=== PATIENT | male | born 1990 | race Caucasian/White ===

== ENCOUNTER 2016-04-13 23:03 | Emergency (ER) | payer OTHER ==
--- NOTE | 2016-04-14 01:58 | ED CLINICAL REPORT ---
Clinical Report - Physicians/Mid Levels [facility] [address] [place] [address] 04/13/2016 23:03 Patient: KENN JIMÉNEZ Arrived- By private vehicle. Historian- patient. HISTORY OF PRESENT ILLNESS Chief Complaint: NEAR-SYNCOPE. Is no longer unconscious. He has recovered. It was abrupt in onset and has been intermittent. Patient was reported to be last known well (today). This occurred today. Event was not witnessed. The patient had preceding symptoms of light-headedness. At time of event, he was sitting (using the restroom). The patient felt faint. The episode lasted seconds. No injuries noted. (patient also reporting a sore throat for the past 3 weeks, shortness of breath, and recent antibiotic use. States she also been having rectal bleeding with diarrhea for the past several days.). Similar symptoms previously: None. Recent medical care: The patient was seen recently in a clinic (treated with antibiotics for what patient describes as pneumonia or bronchitis approximately one month ago.). REVIEW OF SYSTEMS No black stools or skin rash. He has had bloody stools. All systems otherwise negative, except as recorded above. PAST HISTORY See nurses notes. SOCIAL HISTORY Never smoker. Occasional alcohol use; consumes beer. No drug use. No recent travel. Is a local resident. FAMILY HISTORY (Brother has asthma. no family history of acute sudden unexpected .). ADDITIONAL NOTES The nursing notes have been reviewed. PHYSICAL EXAM Vital Signs: 04/13/2016 23:07 BP: 126/83. HR: 102. RR: 18. O2 saturation: 96%. Temp: 98.5 F. Blood pressure normal. Oxygen saturation normal. Appearance: Alert. No acute distress. Head: No ecchymosis. Eyes: Pupils equal, round and reactive to light. No nystagmus. Extraocular movements normal. ENT: Normal ENT inspection. TM's normal. Mild generalized pharyngeal erythema. No pharyngeal vesicles or ulcerations. No right tonsillar abscess or left tonsillar abscess. Moist mucous membranes. Pharynx normal. No depression of the gag reflex. No trouble handling secretions or injury to the tongue. The mucous membranes are not dry. (no brawny edema). Neck: Normal inspection. Neck supple. No meningeal signs. CVS: Normal heart rate and rhythm. Heart sounds normal. Pulses normal. Respiratory: No respiratory distress. Breath sounds normal. Abdomen: Soft and nontender. Back: Normal inspection. : Genital inspection normal. Rectal: Rectal exam normal. No abnormal findings on digital exam. (guaiac-negative. no masses. No discharge. Prostate normal in contour and size.). Skin: Skin warm and dry. Normal skin color. No rash. Normal skin turgor. Extremities: Extremities exhibit normal ROM. No lower extremity edema. Neuro: Alert. Oriented X 3. Mood/affect normal. Speech normal. Cranial nerves normal (as tested). No cerebellar findings. No motor deficit. No sensory deficit. LABS, X-RAYS, AND EKG EKG: No acute process. No acute ischemia. Normal EKG. Normal sinus rhythm. Rate: 100. Normal P waves. Normal MONIE. Normal QRS complex. Normal axis. Normal ST and T waves, QT and QTc. Prior EKG unavailable. The study has been interpreted contemporaneously by me. The study has been independently viewed by me. The EKG appears to be a good tracing. Chest X-ray: No acute disease. Normal lung markings present. Normal heart size. Mediastinum normal. Great vessels normal. No infiltrate. Views: PA and lateral. Technique: good. The X-rays were independently viewed by me and interpreted contemporaneously by me. Laboratory Tests: CBC w Diff: (CARLOS: 04/13/2016 23:30) ( MsgRcvd 04/14/2016 00:14) Final results Test Result Flag Units (Reference) WHITE BLOOD COUNT 7.4 K/uL (4.5-11.5) RED BLOOD COUNT 5.52 M/uL (4.50-5.90) HEMOGLOBIN 15.5 gm/dL (13.5-17.5) HEMATOCRIT 46.1 % (41.0-53.0) MEAN CELL VOLUME 84 fL (80-100) MEAN CORPUSCULAR HGB 28 pg (26-34) MEAN CORPUSCULAR HGB CONC 34 g/dL (31-37) RED CELL DISTRIBUTION WIDTH 12.9 % (11.6-14.8) PLATELET COUNT 276 K/uL (150-400) NEUTROPHIL % 52.9 % (50-75) LYMPH % 35.7 % (25-40) MONO % 10.6 % (3-14) EOSINOPHIL % 0.5 % (0-4) BASOPHIL % 0.3 % (0-2) PT with INR: (CARLOS: 04/13/2016 23:30) ( MsgRcvd 04/14/2016 00:24) Final results Test Result Flag Units (Reference) INR 0.9 (0.8-1.2) Low Intensity Therapy: INR 1.5-2.0 PT range 18.5-23.1Mod.Intensity Therapy: INR 2.0-3.0 PT range 23.1-31.5High Intensity Therapy: INR 2.5-3.5 PT range 27.4-35.5High Intensity Therapy 2: INR 3.0-4.0 PT range 31.5-39.3 APTT 30 SECONDS (24-34) CMP: (CARLOS: 04/13/2016 23:30) ( MsgRcvd 04/14/2016 00:33) Final results Test Result Flag Units (Reference) GLUCOSE 130 H mg/dL (70-110) BUN 10 mg/dL (7-18) CREATININE 0.9 mg/dL (0.6-1.3) Estimated GFR >60 mL/min Estimated GFR- >60 mL/min Note: Persistent reduction over 3 months in eGFR<60 mL/min/1.73 m2 defines CKD. Patients with eGFR values>=60 mL/min/1.73 m2 may also have CKD if evidence ofpersistent proteinuria. Additional information may be foundat www.kidney.org. SODIUM 140 mmol/L (136-145) POTASSIUM 3.5 mmol/L (3.5-5.1) CHLORIDE 101 mmol/L (98-107) CARBON DIOXIDE 27 mmol/L (21-32) CALCIUM 8.3 L mg/dL (8.5-10.1) TOTAL PROTEIN 7.7 g/dL (6.4-8.2) ALBUMIN 3.7 g/dL (3.3-5.0) BILIRUBIN, TOTAL 0.4 mg/dL (0.0-1.0) ALKALINE PHOSPHATASE 111 U/L (46-116) AST (SGOT) 56 H U/L (15-37) ALT (SGPT) 120 H U/L (12-78) Culture, Strep Screen: (CARLOS: 04/14/2016 00:45) ( MsgRcvd 04/17/2016 06:28) Final results Test Result Flag Units (Reference) RAPID STREP SCREEN - THROAT CALLED TO: NA -- DATE: 04/14/16 NEGATIVE SCREEN: RAPID STREP SCREEN NEGATIVE; CONFIRMATION TO FOLLOW . DATE: 04/17/16 NO BETA STREP ISOLATED: NO BETA STREP ISOLATED Type & Screen: (CARLOS: 04/13/2016 23:30) ( MsgRcvd 04/14/2016 01:16) Final results Test Result Flag Units (Reference) PATIENT BLOOD TYPE O Negative ANTIBODY SCREEN NEGATIVE . PROGRESS AND PROCEDURES Course of Care: the patient is a 26-year-old male withno pertinent past medical history presenting for evaluation of syncope. Patient also reporting many other medical concerns. We will evaluate these as well. Patient with reported bloody bowel movements. Patient is Hemoccult negative on examination. The patient will be evaluated with the [facility] the role. The patient does have reported shortness of breath however on asking the patient why he is having the shortness of breath, patient states that the swelling in the throat makes it difficult for him to breathe. Do not feel that this is the typical shortness of breath associated with cardiopulmonary disease. The patient will be evaluated with a chest x-ray and EKG as well as laboratory studies. The chest x-ray we'll evaluate for any signs of consolidation or pneumonia. We will also order a rapid strep for evaluation of the patient's sore throat. No concerning signs of Derrell angina, peritonsillar abscess, or retropharyngeal abscess noted on examination. the patient is nontoxic and in no acute distress. Patient is agreeable to the treatment and plan. Workup does not show any acute abnormalities. Laboratory studies are unremarkable except for slight elevation in liver enzymes. I discussion with patient in regards to the elevated liver enzymes. Patient states that he has been diagnosed with "fatty liver disease. "Patient reports that his liver enzymes are always a little elevated. The rest of the patient's workup including EKG and chest x-ray are unremarkable. Based on the [employer] syncope rules, do not feel patient needs to be admitted to the hospital require further emergency department evaluation. Patient is a stable outpatient candidate. I discussion with patient in regards to her workup, diagnosis, home care, follow-up, and return precautions. All questions answered. The patient expressed understanding of these instructions and was agreeable to them. CLINICAL IMPRESSION Near syncope .12 lead EKG performed. Minor GI bleed with hematochezia. 04/13/2016 23:07 BP: 126/83. HR: 102. RR: 18. O2 saturation: 96%. Temp: 98.5 F. Blood pressure normal. Oxygen saturation normal. Acute viral bronchitis. Acute bronchospasm Acute viral pharyngitis elevated liver enzymes, acute mild. INSTRUCTIONS Warnings: GENERAL WARNINGS: Return or contact your physician immediately if your condition worsens or changes unexpectedly, if not improving as expected, or if other problems arise. SPECIFICALLY, return if you develop chest pain, fluttering sensation in your chest, lightheadedness, fainting, numbness, weakness or extreme fatigue. Your Current Medications: CONTINUE TAKING THE FOLLOWING MEDICATIONS: None*. Omeprazole Oral. Prescription Medications: Albuterol HFA oral inhaler: inhale 1-2 puffs via spacer every 4 hours as needed for wheezing, difficulty breathing or shortness of breath. Dispense one (1) unit. No refill. OTC Medications: Motrin (available over the counter): take according to label instructions. Follow-up: Return to the emergency department as needed. Follow up with your doctor in three days. Reason for referral: recheck today's concerns. Summary of care provided to patient via paper. Screening today revealed the patient's blood pressure to be in the normal range. The patient should follow up with a primary care provider for blood pressure management. Understanding of the discharge instructions verbalized by patient. Follow-up with: Migel Bernard MD, Gastroenterology, , [id number], , [place], [phone] Follow up in one week. Reason for referral: recheck today's concerns and evaluation elevated liver test. Summary of care provided to patient via paper. (Electronically signed by Mekhi Aldrich Dr. 04/17/2016 16:40)
--- NOTE | 2016-04-14 01:59 | ED ORDER SUMMARY ---
..... Patient: KENN JIMÉNEZ OrderSheet [facility] VisitID: [id number] [place] [address] 26y, M Registration Date/Time: 04/13/2016 ORDER SHEET Weight: 124.2 kg (stated) Allergies: No Known Drug Allergy GENERAL ORDERS: Chest 2V Urgent (23:28 04/13/2016 Jessica Doty) (Ack 23:31 [facility] ER Part Time) (0:07 Fiordalizager) CBC w Diff Urgent (23:30 04/13/2016 Jessica Doty) (Ack 23:31 [facility] ER Part Time) CMP Urgent (23:30 04/13/2016 Jessica Doty) (Ack 23:31 [facility] Part Time) PT with INR Urgent (23:30 04/13/2016 Jessica Doty) (Ack 23:31 [facility] Part Time) PTT Urgent (23:30 04/13/2016 Jessica Doty) (Ack 23:31 [facility] Part Time) Type & Screen Urgent (23:30 04/13/2016 Jessica Doty) (Ack 23:31 [facility] Part Time) Stool for C. Difficile Urgent (23:30 04/13/2016 Jessica Doty) (Ack 23:31 [facility] ER Part Time) Stool WBC Urgent (23:30 04/13/2016 Jessica Doty) (Ack 23:31 [facility] ER Part Time) Pulse oximeter (23:30 04/13/2016 Jessica Doty) (Ack 23:31 [facility] ER Part Time) EKG - ER Stat (23:30 04/13/2016 Jessica Doty) (Ack 23:31 [facility] Part Time) (0:23 Matias) Culture, Strep Screen Urgent (00:49 04/14/2016 Jessica Doty) (Ack 0:56 [facility] ER Part Time) MEDICATION ORDERS: DuoNeb Neb Tx 1 unit dose (NOW) (23:39 04/13/2016 Jessica Doty) (Ack 23:39 [facility] ER Part Time) (0:55 [facility] ER Part Time) IV FLUIDS: IV NS : initial bolus 1000 mL (1000 mL/hr), then none - for X1 (NOW) (23:29 04/13/2016 Jessica Doty) (23:53 Jf Young) ORDER SHEET NOTES: [Electronically signed by Narciso Barron R.N. (05:41 04/14/2016)] [Electronically signed by Mekhi Aldrich Dr. (16:40 04/17/2016)] [Electronically locked/signed by Narciso Barron R.N. (05:41 04/14/2016)]
--- NOTE | 2016-04-14 01:59 | ED NURSING NOTES ---
Clinical Report - Nurses [facility] [address] [place] [address] 04/13/2016 23:03 Patient: KENN JIMÉNEZ TRIAGE Triage time 23:Apr 13 2016. Acuity: LEVEL 3. Chief Complaint: SHORTNESS OF BREATH and (sob cp). --23:13 Narciso Barron R.N. 23:07 04/13/16. BP: 126/83. HR: 102. RR: 18. O2 saturation: 96%. Temp: 98.5 F. --23:13 Narciso Barron R.N. Weight: 124.2 kg stated. Height/Length: 74 inches Per Patient. BMI: 35.2. --23:12 Narciso Barron R.N. Medications None. --23:11 Narciso Barron R.N. Omeprazole Oral. --23:11 Narciso Barron R.N. Allergies No Known Drug Allergy. --23:11 Narciso Barron R.N. History Arrived by private vehicle. ( Pt diagnosed with pneumonia end of february given ABX and steroids. Pt is experiencing pain with respiration. No change in symptoms since then. Pt reports feeling Dizzy with BM. Pt reports bloody stool.). The patient has had a cough. SOCIAL HX: Never smoker. Alcohol use; consumes beer occasionally. No drug use. --23:13 Narciso Barron R.N. PROBLEMS: Gastritis. Dehydration. Abnormal Liver Function Test. Peptic Ulcer Disease. Slipped disc. Abdominal Pain. Gastric ulcer. --23:10 Narciso Barron R.N. Interventions ID band on patient. To treatment room. --23:13 Narciso Barron R.N. PHYSICAL ASSESSMENT GENERAL / NEURO / PSYCH: Alert. Oriented X 4. Appears in no acute distress. RESPIRATORY: Decreased breath sounds in the right lung base posteriorly. CVS: Normal sinus rhythm noted. GI / : Bowel sounds within normal limits. --23:21 Narciso Barron R.N. NURSING PROGRESS NOTES Monitoring of patient in place. Patient gowned. Reassurance given. Two patient identifiers checked. Side rails up x 1. Bed placed in lowest position. Patient placed in chair. --23:20 Narciso Barron R.N. 23:52 04/13/2016 Site #1 started via IV in the left antecubital space with an 18g angiocath, with aseptic technique and good blood return; one attempt. Blood drawn: rainbow set. Labeled in the presence of the patient and sent to the lab. Saline lock flushed. --23:53 Narciso Barron R.N. 23:52 04/13/2016 Started bag #1 1000 mL IV Fluids IV NS (Saline); bolus of 1000 mL wide open via site #1. Allergies verified and confirmed 5 rights. IV patency established. IV site checked: no pain, redness, or swelling. IV flushed thoroughly pre- and post-medication administration. Completed per protocol. --23:53 Narciso Barron R.N. EKG time: (0016 AM). EKG was ordered, performed by a tech and shown to the ED physician. --00:23 Yesenia Conley 00:30 04/14/2016 Duoneb (Ipratropium-Albuterol) Neb TX 1 unit dose given. Given by the respiratory therapist. Allergies verified and confirmed 5 rights. --00:55 Barrington Rosenbaum, ER [facility] Rn. DISPOSITION / DISCHARGE 02:12 04/14/2016 Site #1 removed upon discharge. Pressure dressing applied. --02:12 Narciso Barron R.N. Departure time: 0210. Discharge instructions provided and reviewed with the patient. Reviewed medication(s) side effects information. Prescription(s) given to the patient. Patient verbalized understanding. Written instructions provided in Greek. The patient was discharged by the physician. He was discharged home. He left the Emergency Department ambulatory and via private vehicle. Patient driving. Bed requested. ( Pt ambulated on discharge steady on his feet, pt verbalized understanding of discharge instructions and follow up care.). --02:14 Narciso Barron R.N. 02:14 04/14/16. BP: 136/67. HR: 98. RR: 18. O2 saturation: 98%. Temp: 98.2 F. Pain level now 10/27. --02:15 Narciso Barron R.N. Locked/Released at 04/14/2016 5:41 by Narciso Barron R.N.
--- NOTE | 2016-04-14 01:59 | ED NURSING NOTES ---
Clinical Report - Nurses [facility] [address] [place] [address] 04/13/2016 23:03 Patient: KENN JIMÉNEZ TRIAGE Triage time 23:Apr 13 2016. Acuity: LEVEL 3. Chief Complaint: SHORTNESS OF BREATH and (sob cp). --23:13 Narciso Barron R.N. 23:07 04/13/16. BP: 126/83. HR: 102. RR: 18. O2 saturation: 96%. Temp: 98.5 F. --23:13 Narciso Barron R.N. Weight: 124.2 kg stated. Height/Length: 74 inches Per Patient. BMI: 35.2. --23:12 Narciso Barron R.N. Medications None. --23:11 Narciso Barron R.N. Omeprazole Oral. --23:11 Narciso Barron R.N. Allergies No Known Drug Allergy. --23:11 Narciso Barron R.N. History Arrived by private vehicle. ( Pt diagnosed with pneumonia end of february given ABX and steroids. Pt is experiencing pain with respiration. No change in symptoms since then. Pt reports feeling Dizzy with BM. Pt reports bloody stool.). The patient has had a cough. SOCIAL HX: Never smoker. Alcohol use; consumes beer occasionally. No drug use. --23:13 Narciso Barron R.N. PROBLEMS: Gastritis. Dehydration. Abnormal Liver Function Test. Peptic Ulcer Disease. Slipped disc. Abdominal Pain. Gastric ulcer. --23:10 Narciso Barron R.N. Interventions ID band on patient. To treatment room. --23:13 Narciso Barron R.N. PHYSICAL ASSESSMENT GENERAL / NEURO / PSYCH: Alert. Oriented X 4. Appears in no acute distress. RESPIRATORY: Decreased breath sounds in the right lung base posteriorly. CVS: Normal sinus rhythm noted. GI / : Bowel sounds within normal limits. --23:21 Narciso Barron R.N. NURSING PROGRESS NOTES Monitoring of patient in place. Patient gowned. Reassurance given. Two patient identifiers checked. Side rails up x 1. Bed placed in lowest position. Patient placed in chair. --23:20 Narciso Barron R.N. 23:52 04/13/2016 Site #1 started via IV in the left antecubital space with an 18g angiocath, with aseptic technique and good blood return; one attempt. Blood drawn: rainbow set. Labeled in the presence of the patient and sent to the lab. Saline lock flushed. --23:53 Narciso Barron R.N. 23:52 04/13/2016 Started bag #1 1000 mL IV Fluids IV NS (Saline); bolus of 1000 mL wide open via site #1. Allergies verified and confirmed 5 rights. IV patency established. IV site checked: no pain, redness, or swelling. IV flushed thoroughly pre- and post-medication administration. Completed per protocol. --23:53 Narciso Barron R.N. EKG time: (0016 AM). EKG was ordered, performed by a tech and shown to the ED physician. --00:23 Yesenia Conley 00:30 04/14/2016 Duoneb (Ipratropium-Albuterol) Neb TX 1 unit dose given. Given by the respiratory therapist. Allergies verified and confirmed 5 rights. --00:55 Barrington Rosenbaum, ER Pet Sitter. DISPOSITION / DISCHARGE 02:12 04/14/2016 Site #1 removed upon discharge. Pressure dressing applied. --02:12 Narciso Barron R.N. Departure time: 0210. Discharge instructions provided and reviewed with the patient. Reviewed medication(s) side effects information. Prescription(s) given to the patient. Patient verbalized understanding. Written instructions provided in Occitan. The patient was discharged by the physician. He was discharged home. He left the Emergency Department ambulatory and via private vehicle. Patient driving. Bed requested. ( Pt ambulated on discharge steady on his feet, pt verbalized understanding of discharge instructions and follow up care.). --02:14 Narciso Barron R.N. 02:14 04/14/16. BP: 136/67. HR: 98. RR: 18. O2 saturation: 98%. Temp: 98.2 F. Pain level now 10/27. --02:15 Narciso Barron R.N. Locked/Released at 04/14/2016 5:41 by Narciso Barron R.N.
--- NOTE | 2016-04-14 01:59 | ED ORDER SUMMARY ---
..... Patient: KENN JIMÉNEZ OrderSheet [facility] VisitID: [id number] [place] [address] 26y, M Registration Date/Time: 04/13/2016 ORDER SHEET Weight: 124.2 kg (stated) Allergies: No Known Drug Allergy GENERAL ORDERS: Chest 2V Urgent (23:28 04/13/2016 Jessica Doty) (Ack 23:31 [facility] Slitter And Rewinder) (0:07 Fiordalizager) CBC w Diff Urgent (23:30 04/13/2016 Jessica Doty) (Ack 23:31 [facility] Rewinder) CMP Urgent (23:30 04/13/2016 Jessica Doty) (Ack 23:31 [facility] Rewinder) PT with INR Urgent (23:30 04/13/2016 Jessica Doty) (Ack 23:31 [facility] Rewinder) PTT Urgent (23:30 04/13/2016 Jessica Doty) (Ack 23:31 [employer] And Rewinder) Type & Screen Urgent (23:30 04/13/2016 Jessica Doty) (Ack 23:31 [facility] Slitter [facility] Rewinder) Stool for C. Difficile Urgent (23:30 04/13/2016 Jessica Doty) (Ack 23:31 [facility] Rewinder) Stool WBC Urgent (23:30 04/13/2016 Jessica Doty) (Ack 23:31 [facility] Rewinder) Pulse oximeter (23:30 04/13/2016 Jessica Doty) (Ack 23:31 [facility] Rewinder) EKG - ER Stat (23:30 04/13/2016 Jessica Doty) (Ack 23:31 [facility] [employer] Rewinder) (0:23 Matias) Culture, Strep Screen Urgent (00:49 04/14/2016 Jessica Doty) (Ack 0:56 [facility] [employer] Rewinder) MEDICATION ORDERS: DuoNeb Neb Tx 1 unit dose (NOW) (23:39 04/13/2016 Jessica Doty) (Ack 23:39 [facility]inder) (0:55 [facility] Rewinder) IV FLUIDS: IV NS : initial bolus 1000 mL (1000 mL/hr), then none - for X1 (NOW) (23:29 04/13/2016 Jessica Doty) (23:53 Jf Young) ORDER SHEET NOTES: [Electronically signed by Narciso Barron R.N. (05:41 04/14/2016)] [Electronically signed by Mekhi Aldrich Dr. (16:40 04/17/2016)] [Electronically locked/signed by Narciso Barron R.N. (05:41 04/14/2016)]
--- NOTE | 2016-04-14 06:55 | DIAGNOSTIC IMAGING REPORT ---
PROCEDURE: XR CHEST 2 VIEW INDICATION: COUGH, PLEURISY, initial encounter TECHNIQUE: PA and lateral view. COMPARISON: None. FINDINGS: Lungs are clear. Cardiovascular structures are normal. Bony thorax is unremarkable. IMPRESSION: 1. Negative chest.
--- NOTE | 2016-04-17 16:40 | ED MAR SUMMARY ---
..... Medication Administration Record Merged With [facility] [address] [place] [address] Patient: KENN JIMÉNEZ Visit ID: [id number] 26y, M Weight: 124.2 kg Height/Length: 74 in BMI: 35.2 ALLERGIES: No Known Drug Allergy Start 23:52 04/13/2016 Narciso Barron R.N. Medication Administered: IV NS (SALINE), Dose: IV Fluids, Bolus: 1000 mL wide open, Dispensed: 1000 mL bag, Site: #1 left AC. Medication Ordered: IV NS : initial bolus 1000 mL (1000 mL/hr), then none - for X1 (NOW). Given 00:30 04/14/2016 Barrington Rosenbaum, LETI Sign Language Teacher Medication Administered: DUONEB [NEB TX] (IPRATROPIUM-ALBUTEROL), Dose: 1 unit dose Neb TX. Medication Ordered: DuoNeb Neb Tx 1 unit dose (NOW).
--- NOTE | 2016-04-17 16:40 | ED DISCHARGE INSTRUCTIONS ---
Patient: KENN JIMÉNEZ General Instructions [facility] VisitID: [id number] [address] [place] [address] 26y, M Registration Date/Time: 04/13/2016 Near syncope .12 lead EKG performed. Minor GI bleed with hematochezia. 04/13/2016 23:07 BP: 126/83. HR: 102. RR: 18. O2 saturation: 96%. Temp: 98.5 F. Blood pressure normal. Oxygen saturation normal. Acute viral bronchitis. Acute bronchospasm Acute viral pharyngitis elevated liver enzymes, acute mild. INSTRUCTIONS Warnings: GENERAL WARNINGS: Return or contact your physician immediately if your condition worsens or changes unexpectedly, if not improving as expected, or if other problems arise. SPECIFICALLY, return if you develop chest pain, fluttering sensation in your chest, lightheadedness, fainting, numbness, weakness or extreme fatigue. Your Current Medications: CONTINUE TAKING THE FOLLOWING MEDICATIONS: None*. Omeprazole Oral. Prescription Medications: Albuterol HFA oral inhaler: inhale 1-2 puffs via spacer every 4 hours as needed for wheezing, difficulty breathing or shortness of breath. Dispense one (1) unit. No refill. OTC Medications: Motrin (available over the counter): take according to label instructions. Follow-up: Return to the emergency department as needed. Follow up with your doctor in three days. Reason for referral: recheck today's concerns. Summary of care provided to patient via paper. Screening today revealed the patient's blood pressure to be in the normal range. The patient should follow up with a primary care provider for blood pressure management. Understanding of the discharge instructions verbalized by patient. Follow-up with: Migel Bernard MD, Gastroenterology, , [address] , [place], [id number] Follow up in one week. Reason for referral: recheck today's concerns and evaluation elevated liver test. Summary of care provided to patient via paper. ADDITIONAL INFORMATION Near-Fainting:Vagal Reaction Fainting (syncope) is a temporary loss of consciousness ("passing out"). It occurs when blood flow to the brain is reduced. Your doctor believes that your episode was due to a common vagal reaction. A vagal reaction is a reflex response that causes the pulse to slow down. If the pulse is low enough, the blood pressure falls and causes fainting or near-fainting. Lying down usually stops the reaction within 60 seconds. This reflex response can occur during sudden fear, severe pain, emotional stress, overexertion or suddenly standing up after sitting or lying for a long time. Home Care: 1) Rest today and resume your normal activities as soon as you are feeling back to normal. 2) If you become light-headed or dizzy, lie down immediately or sit with your head lowered between your knees. Follow Up with your doctor as instructed. Get Prompt Medical Attention if any of the following occur: -- Another fainting spell occurs, which is not explained by the common causes listed above -- Chest, arm, neck, jaw, back or abdominal pain -- Shortness of breath -- Weakness, tingling or numbness in one side of the face, one arm or leg -- Slurred speech, confusion, difficulty walking or seeing -- Seizure -- Blood in vomit, stools (black or red color) -- (In women) unexpected vaginal bleeding Rectal Bleeding (Stable) Your exam today shows signs of blood in the stool. This is called rectal bleeding, because the blood passes through the rectum. However, the blood may not be coming from the rectum. Blood in the stool may be red or black in color. Red blood in the stool usually comes from the lower gastro-intestinal (GI) tract. This may be due to diverticulosis, polyps, colon inflammation or infection, anal fissure or hemorrhoids. In persons over 50 tumors and cancer of the intestinal tract may first show up as red blood in the stool. Upper GI bleeding causes the stool to turn black. This may occur with bleeding from the esophagus, stomach, duodenum or small intestine. Very small amounts of GI bleeding may not be visible and can only be discovered on a chemical test of the stool. You have not lost a large amount of blood and your condition appears stable at this time. It is very important to have a follow-up exam to determine the exact cause of your bleeding. Home Care: 1) You may resume normal activity as long as you feel well. 2) Avoid aspirin and anti-inflammatory drugs such as ibuprofen (Advil, Motrin) and naproxen (Aleve and Naprosyn). You may use acetaminophen (Tylenol) for pain. [ NOTE : If you have chronic liver disease, talk with your doctor before using acetaminophen.] 3) Avoid alcohol. Follow Up with your doctor or as advised by our medical staff. It is very important that you have further tests done to find the cause of your bleeding. Get Prompt Medical Attention if any of the following occur: -- Large amount of rectal bleeding (more than 1 cup of blood in 24 hours) -- Increasing abdominal pain -- Weakness, dizziness or fainting -- Vomiting blood (red or black color) Bronchitis, Viral (Adult: No Abx) You have a viral bronchitis. This illness is contagious during the first few days and is spread through the air by coughing and sneezing, or by direct contact (touching the sick person and then touching your own eyes, nose, or mouth). Most viral illnesses resolve within 10-14 days with rest and simple home remedies, although they may sometimes last for several weeks. Antibiotics will not kill a virus and are generally not prescribed for this condition. Home Care: If symptoms are severe, rest at home for the first 2-3 days. When resuming activity, don't let yourself become overly tired. Do not smoke and avoid the smoke of others. You may use acetaminophen (Tylenol) or ibuprofen (Motrin, Advil) to control fever or pain, unless another pain medicine was prescribed. [NOTE: If you have chronic liver or kidney disease or ever had a stomach ulcer or GI bleeding, talk with your doctor before using these medicines.] (Aspirin should never be used in anyone under 18 years of age who is ill with a fever. It may cause severe liver damage.) Your appetite may be poor so a light diet is fine. Avoid dehydration by drinking 6-8 glasses of fluids per day (water, sport drinks such as Gatorade, juices, tea, soup, etc.). Extra fluids will help loosen secretions in the nose and lung. Thdk-otr-uhwhluz cold medicines will not shorten the length of the illness, but may be helpful for cough (Robitussin DM), sore throat (Chloraseptic lozenges or spray), nasal and sinus congestion (Actifed or Sudafed). [NOTE: Do not use decongestants if you have high blood pressure.] Follow Up with your doctor or as directed by our staff if you are not improving over the next week. NOTE: If you are age 65 or older, or if you have chronic asthma or COPD, we recommend a PNEUMOCOCCAL VACCINATION every five years and a yearly INFLUENZAVACCINATION (FLU-SHOT) every . Ask your doctor about this. If you had an X-ray, a radiologist will review it. You will be notified of any new findings that may affect your care.] Get Prompt Medical Attention if any of the following occur: Fever over 100.4F (38.0C) for more than three days Trouble breathing, wheezing or pain with breathing Coughing up blood or increased amounts of colored sputum Weakness, drowsiness, headache, facial pain, ear pain or a stiff neck Bronchospasm (Adult) Bronchospasm occurs when the airways (bronchial tubes) go into spasm and contract. This makes it hard to breathe and causes wheezing (a high-pitched whistling sound). Bronchospasm can also cause frequent coughing without the wheezing sound. Bronchospasm is due to irritation, inflammation or allergic reaction of the airways. People with asthma get bronchospasm. However, not everyone with bronchospasm has asthma. Being exposed to harmful fumes, a recent case of bronchitis, or a flare-up of chronic emphysema (COPD) may cause the airways to spasm. An episode of bronchospasm may last 7-14 days. Medicine may be prescribed to relax the airways and prevent wheezing. Antibiotics will be prescribed only if your doctor thinks there is a bacterial infection. Antibiotics do not help a viral infection. Home Care: Drink lots of water or other fluids (at least 10 glasses a day) during an attack. This will loosen lung secretions and make it easier to breathe. If you have heart or kidney disease, check with your doctor before you drink extra amounts of fluids. Take prescribed medicine exactly at the times advised. If you have a hand-held inhaler or aerosol breathing medicine, do not use it more than once every four hours, unless told to do so. If prescribed an antibiotic or prednisone, take all of the medicine even if you are feeling better after a few days. Do not smoke. Avoid being exposed to the smoke of others. If you were given an inhaler, use it exactly as directed. If you need to use it more often than prescribed, your condition may be getting worse. Contact your doctor or this facility. Follow Up With Your Doctor, Or As Directed. [ NOTE: If you are age 65 or older, or if you have chronic asthma or COPD, we recommend a PNEUMOCOCCAL VACCINATION every five years and a yearly INFLUENZA VACCINATION (FLU-SHOT) every . Ask your doctor about this.] Get Prompt Medical Attention If Any Of The Following Occur: Increased wheezing or shortness of breath Need to use your inhalers more often than usual without relief Fever of 100.4F (38C) or higher, or as directed by your healthcare provider Coughing up lots of dark-colored or bloody sputum (mucus) Chest pain with each breath You do not start to improve within 24 hours Viral Pharyngitis (Sore Throat) Your throat pain is due to an infection called "Viral Pharyngitis", commonly known as "Sore Throat". This is a contagious illness. It is spread through the air by coughing, kissing or by touching others after touching your mouth or nose. Symptoms include throat pain worse with swallowing, aching all over, headache and fever. Unlike strep throat, which is a bacterial infection, this illness does not require treatment with an antibiotic. Home Care: If your symptoms are severe, rest at home for the first 2-3 days. Children: Use acetaminophen (Tylenol) for fever, fussiness or discomfort. In infants over six months of age, you may use ibuprofen (Children's Motrin) instead of Tylenol. [NOTE: If your child has chronic liver or kidney disease or ever had a stomach ulcer or GI bleeding, talk with your bailey doctor before using these medicines.] (Aspirin should never be used in anyone under 18 years of age who is ill with a fever. It may cause severe liver damage.) Adults: You may use acetaminophen (Tylenol) or ibuprofen (Motrin, Advil) to control pain or fever, unless another medicine was prescribed. [NOTE: If you have chronic liver or kidney disease or ever had a stomach ulcer or GI bleeding, talk with your doctor before using these medicines.] Throat lozenges or sprays (Chloraseptic and others) will reduce pain. Gargling with warm salt water will also reduce throat pain. Dissolve 1/2 teaspoon of salt in 1 glass of warm water. This is especially useful just before meals. Follow Up with your doctor or as directed by our staff if you are not improving over the next week. Get Prompt Medical Attention if any of the following occur: Fever over 100.5F (38.0C) oral, or over 101.5F (38.6C) rectal for more than three days New or worsening ear pain, sinus pain or headache Painful lumps in the back of your neck Unable to swallow liquids or open your mouth wide due to throat pain Trouble breathing or noisy breathing Muffled voice New rash Albuterol Sulfate Pressurized inhalation, suspension What is this medicine? ALBUTEROL (al BYOO ter ole) is a bronchodilator. It helps open up the airways in your lungs to make it easier to breathe. This medicine is used to treat and to prevent bronchospasm. How should I use this medicine? This medicine is for inhalation through the mouth. Follow the directions on your prescription label. Take your medicine at regular intervals. Do not use more often than directed. Make sure that you are using your inhaler correctly. Ask you doctor or health care provider if you have any questions. Talk to your pattern finisher regarding the use of this medicine in children. Special care may be needed. What side effects may I notice from receiving this medicine? Side effects that you should report to your doctor or health coronary care unit nurse as soon as possible: allergic reactions like skin rash, itching or hives, swelling of the face, lips, or tongue breathing problems chest pain feeling faint or lightheaded, falls high blood pressure irregular heartbeat fever muscle cramps or weakness pain, tingling, numbness in the hands or feet vomiting Side effects that usually do not require medical attention (report to your doctor or health coronary care unit nurse if they continue or are bothersome): cough difficulty sleeping headache nervousness or trembling stomach upset stuffy or runny nose throat irritation unusual taste What may interact with this medicine? anti-infectives like chloroquine and pentamidine caffeine cisapride diuretics medicines for colds medicines for depression or for emotional or psychotic conditions medicines for weight loss including some herbal products methadone some antibiotics like clarithromycin, erythromycin, levofloxacin, and linezolid some heart medicines steroid hormones like dexamethasone, cortisone, hydrocortisone theophylline thyroid hormones What if I miss a dose? If you miss a dose, use it as soon as you can. If it is almost time for your next dose, use only that dose. Do not use double or extra doses. Where should I keep my medicine? Keep out of the reach of children. Store at room temperature between 15 and 30 degrees C (59 and 86 degrees F). The contents are under pressure and may burst when exposed to heat or flame. Do not freeze. This medicine does not work as well if it is too cold. Throw away any unused medicine after the expiration date. Inhalers need to be thrown away after the labeled number of puffs have been used or by the expiration date; whichever comes first. Ventolin HFA should be thrown away 12 months after removing from foil pouch. Check the instructions that come with your medicine. What should I tell my health care provider before I take this medicine? They need to know if you have any of the following conditions: diabetes heart disease or irregular heartbeat high blood pressure pheochromocytoma seizures thyroid disease an unusual or allergic reaction to albuterol, levalbuterol, sulfites, other medicines, foods, dyes, or preservatives or trying to get breast-feeding What should I watch for while using this medicine? Tell your doctor or health coronary care unit nurse if your symptoms do not improve. Do not use extra albuterol. If your asthma or bronchitis gets worse while you are using this medicine, call your doctor right away. If your mouth gets dry try chewing sugarless gum or sucking hard candy. Drink water as directed. You have been given the following additional information: Near Syncope, Vasovagal Rectal Bleed, Stable Bronchitis, No Antibiotic (Adult) Bronchospasm (Adult) Pharyngitis, Viral Albuterol Sulfate Pressurized inhalation, suspension (Electronically signed by Mekhi Aldrich Dr. 04/17/2016 16:40)
--- NOTE | 2016-04-17 16:40 | ED MAR SUMMARY ---
..... Medication Administration Record [facility] [address] [place] [address] Patient: KENN JIMÉNEZ Visit ID: [id number] 26y, M Weight: 124.2 kg Height/Length: 74 in BMI: 35.2 ALLERGIES: No Known Drug Allergy Start 23:52 04/13/2016 Narciso Barron R.N. Medication Administered: IV NS (SALINE), Dose: IV Fluids, Bolus: 1000 mL wide open, Dispensed: 1000 mL bag, Site: #1 left AC. Medication Ordered: IV NS : initial bolus 1000 mL (1000 mL/hr), then none - for X1 (NOW). Given 00:30 04/14/2016 Barrington Rosenbaum, LETI Statistics Professor Medication Administered: DUONEB [NEB TX] (IPRATROPIUM-ALBUTEROL), Dose: 1 unit dose Neb TX. Medication Ordered: DuoNeb Neb Tx 1 unit dose (NOW).
--- NOTE | 2016-04-17 16:40 | ED MED RECONCILIATION SUMMARY ---
Patient: KENN JIMÉNEZ Medication Reconciliation Report [facility] VisitID: [id number] [address] [place] [address] 26y, M Registration Date/Time: 04/13/2016 Weight: 124.2 kg Height/Length: 74 in. BMI: 35.2 ALLERGIES: No Known Drug Allergy The patient's Home Medications are listed below: CONTINUE TAKING THE FOLLOWING MEDICATIONS: Omeprazole Oral The source(s) of the original Home Medication information: Not obtained. The following Medications were given to the patient in the Emergency Department: IV NS IV Fluids bolus 1000 mL wide open, administered: 04/13/2016 11:52:00 PM Duoneb [Neb Tx] Neb TX 1 unit dose, administered: 04/14/2016 12:30:00 AM The following Medications were prescribed to the patient: Motrin (available over the counter): take according to label instructions. -- Mekhi Aldrich Dr. Albuterol HFA oral inhaler: inhale 1-2 puffs via spacer every 4 hours as needed for wheezing, difficulty breathing or shortness of breath. Dispense one (1) unit. No refill. -- Mekhi Aldrich Dr.
--- NOTE | 2016-04-17 16:40 | ED MED RECONCILIATION SUMMARY ---
Patient: KENN JIMÉNEZ Medication Reconciliation Report [facility] VisitID: [id number] [address] [place] [address] 26y, M Registration Date/Time: 04/13/2016 Weight: 124.2 kg Height/Length: 74 in. BMI: 35.2 ALLERGIES: No Known Drug Allergy The patient's Home Medications are listed below: CONTINUE TAKING THE FOLLOWING MEDICATIONS: Omeprazole Oral The source(s) of the original Home Medication information: Not obtained. The following Medications were given to the patient in the Emergency Department: IV NS IV Fluids bolus 1000 mL wide open, administered: 04/13/2016 11:52:00 PM Duoneb [Neb Tx] Neb TX 1 unit dose, administered: 04/14/2016 12:30:00 AM The following Medications were prescribed to the patient: Motrin (available over the counter): take according to label instructions. -- Mekhi Aldrich Dr. Albuterol HFA oral inhaler: inhale 1-2 puffs via spacer every 4 hours as needed for wheezing, difficulty breathing or shortness of breath. Dispense one (1) unit. No refill. -- Mekhi Aldrich Dr.
== END 2016-04-14 02:10 | disposition home or self-care (01) ==
LOC: ED SRH 23:03
DX: K92.1 Melena (principal); J20.8 Acute bronchitis due to other specified organisms; J02.9 Acute pharyngitis, unspecified; R74.8 Abnormal levels of other serum enzymes
CPT/HCPCS: 90001; 90100; 90154; 90155; 90159; 91004; 94001; 94060; 95059